=== PATIENT | female | born 1955 | race African-American/Black ===

== ENCOUNTER 2017-04-06 17:13 | Emergency (ER) | payer OTHER ==
--- NOTE | 2017-04-06 20:51 | CT ---
CT CERVICAL SPINE 04/06/[address] of the cervical spine was performed for evaluation following trauma. Axial slices were acq uired, then coronal and sagittal reconstructions were done. No fracture or dislocation was seen. There is a little downsloping of the superior end plate of C5 b ut this does not appear acute and no fracture lines are seen. Prevertebral soft tissues are normal i n thickness and the C1 to dens distance is normal. There is minimal bulge of the C3-C4 and C4-C5 dis c centrally without evidence of neural impingement. The neural foramina are patent with the most min imal of narrowing at a few levels. The surrounding soft tissues were unremarkable. IMPRESSION: No acute traumatic findings. REPORT IN AGREEMENT WITH PRELIMINARY READING BY VRALBERTINA. POS: HOME
--- NOTE | 2017-04-06 22:39 | CT ---
PRELIMINARY REPORT/[facility]/EMERGENCY AFTER HOURS PROCEDURE: EXAM: CT Lumbar Spine Without Intravenous Contrast CLINICAL HISTORY: 61 years old, female; Pain; Low back pain; Patient HX: Patient reports low back pain after falling 1 day ago, reports stepped off sidewalk causing her to fall. No bowel or bladder incontinence. No num bness or tingling. Pt complains of neck stiffness especially on the left side. TECHNIQUE: Axial computed tomography images of the lumbar spine without intravenous contrast. Coronal and sagittal reformatted images were created and reviewed. COMPARISON: No relevant prior studies available. FINDINGS: Vertebrae: There is no evidence of acute fracture or spondylolisthesis. Normal lordosis. Probable L2 hemangioma Discs/spinal canal/neural foramina: Mild multilevel degenerative disc change with a small RIGHT post erior paracentral disc protrusion at L4/L5 causing moderate RIGHT neural foraminal stenosis. Minimal L5/S1 degenerative disc changes with moderate RIGHT or foraminal stenosis. Soft tissues: LEFT adrenal adenoma. Heterogeneous soft tissue posterior to the LEFT renal vein addit ional indeterminate soft tissue posterior to the IVC these are both seen on axial images 29 through 33. IMPRESSION: No acute fracture. Additional findings noted above. Thank you for allowing us to participate in the care of your patient. Dictated and Authenticated by: Santosh Tabor MD 04/06/2017 6:29 PM Central Time ([place] \T\ [place]) FINAL REPORT CT LUMBAR SPINE WITHOUT CONTRAST 04/06/[address] of the lumbar spine was performed following trauma. Axial slices were acquire, then house l and sagittal reconstructions were done. There was no fracture or dislocation at any level. All vertebrae appeared intact. No soft tissue swe lling was seen around the vertebrae. Findings by level follow: T11-T12: Degenerated disc with some anterior osteophytes. No stenosis. T12-L1: No acute findings. L1-L2: No acute findings. L2-L3: No acute findings. There may be a hemangioma in the L2 vertebral body. L3-L4: No acute findings. L4-L5: Degenerated disc. A broad based bulge of this disc, a little more right eccentric that may ju st barely contact the right L4 root. I am less certain about the left L4 root. L5-S1: Degenerated disc. No gross stenosis. A vacuum phenomenon is seen in each SI joint. Sclerosis of the SI joints. There is a 2.2 cm rounded left adrenal mass, as well as a 1.8 cm right adrenal mass. Both of these h ave negative CT numbers internally. Average CT numbers in each were around minus 14. This makes it h ighly probable that these are adenomas. On slices 28 through 33, one sees some soft tissue density posterior to the IVC on the right and pos terior to the left renal vein on the left. These might be mildly enlarged pericaval paraaortic nodes , significance unknown. IMPRESSION: 1. No acute traumatic findings. 2. Degenerative changes involving discs as listed above. 3. Other findings, including adrenal adenomas, as stated above. Report in agreement with preliminary reading by [facility]. POS: HOME
== END 2017-04-06 18:45 | disposition home or self-care (01) ==
LOC: BURERS 17:13
DX: S13.4XXA Sprain of ligaments of cervical spine, initial encounter (principal); S33.5XXA Sprain of ligaments of lumbar spine, initial encounter; E11.9 Type 2 diabetes mellitus without complications; E78.5 Hyperlipidemia, unspecified; I10 Essential (primary) hypertension; W18.30XA Fall on same level, unspecified, initial encounter
CPT/HCPCS: 72125; 72131